=== PATIENT | female | born 1965 | race Caucasian/White ===

== ENCOUNTER 2019-01-02 06:48 | Day surgery (SDC) | payer BC ==
[2019-01-02 07:12] LABS: Specific Gravity 1.015 (1.005-1.030)
[2019-01-02] MEDS ORDERED: Ringers Lactate 1,000 ML IV ONE (07:21)
[2019-01-02] MEDS ORDERED: LIDOCAINE 1.5% W/EPI AMP 5 ML ONE ×2 (07:25→09:11)
[2019-01-02] MEDS ORDERED: FENTANYL CITR 100 MCG/2 ML ONE (07:27)
[2019-01-02] MEDS ORDERED: LIDOCAINE 1% MPF 5 ML VIAL ONE (07:28)
[2019-01-02] MEDS ORDERED: MIDAZOLAM HCL 2 MG/2 ML INJ ONE (07:28)
[2019-01-02] MEDS ORDERED: PROPOFOL 200 MG/20 ML VIAL IV ONE (07:28)
[2019-01-02] MEDS ORDERED: KETOROLAC 30 MG/ML INJ ONE (08:39)
[2019-01-02] MEDS ORDERED: ONDANSETRON 4 MG/2 ML VIAL ONE (08:41)
== END 2019-01-02 09:34 | disposition home or self-care (01) ==
LOC: OR 06:48
PROVIDERS: ATTEND Obstetrics & Gynecology
PROC: 0UJD8ZZ Inspection of Uterus and Cervix, Via Natural or Artificial Opening Endoscopic (ICD-10-PCS; 2019-01-02)
PROC: 0UDB7ZX Extraction of Endometrium, Via Natural or Artificial Opening, Diagnostic (ICD-10-PCS; principal; 2019-01-02 08:30)
DX: N92.1 Excessive and frequent menstruation with irregular cycle (principal); D25.9 Leiomyoma of uterus, unspecified; N85.6 Intrauterine synechiae; M19.90 Unspecified osteoarthritis, unspecified site; H40.9 Unspecified glaucoma
CPT/HCPCS: 81025; 88305; J2001; J2250; J2405; J2704; J3010